=== PATIENT | female | born 1955 | race Caucasian/White ===

== ENCOUNTER 2021-04-22 06:59 | Day surgery (SDC) | payer BC, MEDICARE ==
[2021-04-22] VITALS (26 sets, daily range): BP systolic 53–131; BP diastolic 37–65
[~2021-04-22] VITALS: Ht 162.6 cm; Wt 60.6 kg
[2021-04-22] MEDS: normal saline 1,000 ML IV SCH ×2 (07:25→12:00)
[2021-04-22] MEDS ORDERED: diphenhydrAMINE 25mg capsule PO PRN (07:25)
[2021-04-22] MEDS ORDERED: sodium bicarbonate (8.4%) inj. 150 ML in dextrose 5%-water 1,000 ML IV ONE (07:25)
[2021-04-22] MEDS ORDERED: LEVO75TA7 PO (08:13)
[2021-04-22] MEDS ORDERED: ROSU40TA22 PO (08:13)
[2021-04-22] MEDS ORDERED: CLOP75TA34 PO (08:13)
[2021-04-22] MEDS ORDERED: EZET10TA48 PO (08:13)
[2021-04-22] MEDS ORDERED: DILT-36 PO (08:13)
[2021-04-22 08:47] LABS: BASOPHILS % (AUTO) 0.4 % (0-1); EOSINOPHILS % (AUTO) 0.7 % (0-6); HEMATOCRIT 41.1 % (35.0-45.0); HEMOGLOBIN 13.9 g/dl (12.0-16.0); LYMPHOCYTES # (AUTO) 1.8 X10'3 (1.1-4.8); LYMPHOCYTES % (AUTO) 25.5 % (21-51); MEAN CORPUSCULAR HEMOGLOBIN 34.8 PG (27.0-31.0); MEAN CORPUSCULAR HGB CONC 33.7 g/dL (33.0-36.5); MEAN CORPUSCULAR VOLUME 103.2 FL (78-98); MEAN PLATELET VOLUME 8.2 FL (7.4-10.4); MONOCYTES # (AUTO) 0.5 X10'3 (0-0.9); MONOCYTES % (AUTO) 6.4 % (2-12); NEUTROPHILS # (AUTO) 4.8 X10'3 (1.8-7.7); PLATELET COUNT 185 X10'3 (140-440); RED BLOOD COUNT 3.99 X10'6 (4.20-5.60); RED CELL DISTRIBUTION WIDTH 12.5 % (11.5-14.5); WHITE BLOOD COUNT 7.2 X10'3 (4.5-11.0)
[2021-04-22] MEDS ORDERED: midazolam 1 mg/ML 2ml injection ONE ×3 (08:53→10:23)
[2021-04-22] MEDS ORDERED: fentaNYL/PF 50MCG/1 ML 2ML syringe ONE (08:53)
[2021-04-22] MEDS ORDERED: LIDOcaine 1% (10mg/ml)w/preservative injection 20ml MDV ONE (08:53)
[2021-04-22] MEDS ORDERED: heparin 1,000unit/ml 10ml vial 10 ML ONE (08:53)
[2021-04-22] MEDS ORDERED: iohexol 350MG/ML 100ml bottle IV ONE (08:53)
[2021-04-22] MEDS ORDERED: iohexol 350 MG/1 ML 200ml bottle ONE (10:25)
[2021-04-22 10:44] LABS: ALBUMIN 3.7 G/DL (3.4-5.0); ANION GAP 7 (8-16); BLOOD UREA NITROGEN 12 MG/DL (7-18); BUN/CREATININE RATIO 14.5 (6.6-38.0); CALCIUM 9.3 MG/DL (8.5-10.1); CHLORIDE 105 MMOL/L (99-107); CREATININE 0.83 MG/DL (0.40-0.90); GLUCOSE 104 MG/DL (70-104); MAGNESIUM 2.1 MG/DL (1.5-2.4); POTASSIUM 3.4 MMOL/L (3.5-5.1); SODIUM 136 MMOL/L (135-145); TOTAL CARBON DIOXIDE 24.2 MMOL/L (24-32); eGFR 69 ML/MIN
[2021-04-22] MEDS ORDERED: proCHLORperazine 10 MG/2 ml inj IV PRN (12:00)
[2021-04-22] MEDS ORDERED: ondansetron/PF 4mg/2ml inj IV PRN (12:00)
[2021-04-22] MEDS ORDERED: HYDROcodone/acetaminophen 5mg/325mg tablet PO PRN (12:00)
[2021-04-22] MEDS ORDERED: HYDROcodone/acetaminophen 10/325mg tab PO PRN (12:00)
--- NOTE | 2021-04-22 16:00 | NUR ---
Dr. Cronin called regarding patients low blood pressure and continued bleeding to left groin. Order to infuse NS 1000ml over 1 hour.
--- NOTE | 2021-04-22 17:00 | NUR ---
Dr. Cronin at bedside. Patient to be admitted to PCU overnight for observation. Patient and family aware.
[2021-04-22] MEDS ORDERED: METO-411 PO (18:02)
--- NOTE | 2021-04-22 18:50 | NUR ---
Called patient report to TRIP Casarez. All questions and concerns addressed.
--- NOTE | 2021-04-22 19:15 | NUR ---
Patient transferred to room 3016a. Bedside report given with TRIP Casarez.
--- NOTE | 2021-04-22 23:44 | NUR ---
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 Patient alert and responsive, oriented x 4 at admission, denied respiratory and physical distress. Bilateral groin cath sites noted clean and dry, with FEMOSTOP with no bleeding noted, though some brownish ecchymosis noted on bilateral sites. Pedal pulses were palpable bilaterally. Vital signs on admission, 99/51; 72; 18; 98.2, and 96% on room air. Rechecked q 15 mons for first hour, and 30 mins next hour, and q hourly afterwards. Patient kept supine, flat to prevent bleeding to site. At 2029, FEMOSTOP removed, and ultrasound of site ordered for am per MD. Patient denies pain, and nausea/vomiting, or headache. Needs attended to.
[2021-04-23] VITALS: BP 111/60
[2021-04-23 02:00] VITALS: BP 109/60
[2021-04-23 06:00] VITALS: BP 96/54
--- NOTE | 2021-04-23 06:25 | NUR ---
Patient in room PCU 3016. I have received report from TRIP Casarez and had the opportunity to ask questions and assume patient care.
[2021-04-23 08:45] LABS: ALBUMIN 2.4 G/DL (3.4-5.0); ANION GAP 11 (8-16); BLOOD UREA NITROGEN 6 MG/DL (7-18); BUN/CREATININE RATIO 9.5 (6.6-38.0); CALCIUM 7.7 MG/DL (8.5-10.1); CHLORIDE 112 MMOL/L (99-107); CREATININE 0.63 MG/DL (0.40-0.90); GLUCOSE 92 MG/DL (70-104); MAGNESIUM 1.9 MG/DL (1.5-2.4); POTASSIUM 3.1 MMOL/L (3.5-5.1); SODIUM 145 MMOL/L (135-145); TOTAL CARBON DIOXIDE 22.1 MMOL/L (24-32); eGFR > 90 ML/MIN
--- NOTE | 2021-04-23 13:39 | NUR ---
Patient stable for discharge per MD orders. PIV discontinued intact. Telemetry monitoring equipment removed and returned to telemetry office. All patient belongings gathered and sent with patient. All discharge instructions reviewed with patient, who was given the opportunity to ask questions. All questions answered, with patient expressing good understanding of discharge instructions. Patient assisted into wheelchair and wheeled to the front of the building, where she entered a private vehicle, departing with her sister as service car driver.
== END 2021-04-23 13:30 | disposition home or self-care (01) ==
LOC: SSTAY O 06:59 → MED 3N 17:12 → PCU 3S 04-23 00:01 → SSTAY O 04-23 13:30
PROVIDERS: ATTEND Internal Medicine Cardiovascular Disease
DX: I70.213 Atherosclerosis of native arteries of extremities with intermittent claudication, bilateral legs (principal); E78.5 Hyperlipidemia, unspecified; I47.1 Supraventricular tachycardia; Z79.899 Other long term (current) drug therapy; Z87.891 Personal history of nicotine dependence
CPT/HCPCS: 36415; 75716; 80048; 83735; 85025; 85610; 93005; 93926; 99152; 99153; C1760; C1769; C1876; C1894; C9765; J1644; J2001; J2250; J3010; J7030; Q0163; Q9967; 37221; A4620; A6258; G0378